=== PATIENT | male | born 1950 | race Hispanic/Latino ===

== ENCOUNTER 2017-01-06 11:39 | Day surgery (SDC) | payer MEDICARE ==
[~2017-01-06 11:39] MED LIST: IOPIDINE OS ONE; MYDRIACYL OS ONE; NEOFRIN OS ONE
[2017-01-06] MEDS ORDERED: NEOFRIN ONE (12:02)
[2017-01-06] MEDS ORDERED: IOPIDINE ONE (12:02)
[2017-01-06] MEDS ORDERED: IOPIDINE OS ONE (12:34)
[2017-01-06] MEDS ORDERED: NEOFRIN OS ONE (12:34)
[2017-01-06] MEDS ORDERED: MYDRIACYL OS ONE (12:34)
[2017-01-06 13:25] VITALS: BP 110/70
== END 2017-01-06 11:40 | disposition home or self-care (01) ==
LOC: OR 11:39
PROVIDERS: ATTEND Specialist
DX: H26.492 Other secondary cataract, left eye (principal)